=== PATIENT | male | born 1965 | race Caucasian/White ===

== ENCOUNTER → 2019-12-17 08:17 | Outpatient (BNVA) | payer MEDICARE, SELFPAY | PROVIDERS: Family Provider Nurse Practitioner; PCP Nurse Practitioner; Referring Provider Nurse Practitioner; Visit Provider Nurse Practitioner | DX: E11.9 Type 2 diabetes mellitus without complications (principal) | CPT/HCPCS: 83036 ==

== ENCOUNTER → 2019-12-18 09:12 | Outpatient (BNVA) | payer MEDICARE, SELFPAY | PROVIDERS: Family Provider Nurse Practitioner; PCP Nurse Practitioner; Visit Provider Nurse Practitioner | DX: Z00.00 Encounter for general adult medical examination without abnormal findings (principal); E03.9 Hypothyroidism, unspecified; E11.9 Type 2 diabetes mellitus without complications | CPT/HCPCS: 80053; 80061; 82044; 83721; 84443; 85025 ==

== ENCOUNTER 2020-07-27 08:25 | Outpatient (CLI) | payer MEDICARE, SELFPAY ==
[2020-07-27 09:00] LABS: Basophils % 0.5 %; Eosinophils # 0.2 10^3/uL (0.0-0.8); Eosinophils % 2.3 %; Hematocrit 44.5 % (42.0-52.0); Hemoglobin 14.7 g/dL (11.7-16.6); Lymphocytes # 2.2 10^3/uL (0.8-4.8); Lymphocytes % 26.3 %; Mean Corpuscular Hemoglobin 29.5 pg (28.0-34.0); Mean Corpuscular Volume 89.4 fL (80-94); Mean Platelet Volume 10.6 fL (7.4-10.4); Monocytes # 0.6 10^3/uL (0.2-0.9); Monocytes % 7.7 %; Neutrophils # 5.21 10^3/uL (1.8-7.7); Neutrophils % 62.7 %; Nucleated Red Blood Cells % 0 %; Platelet Count 253 10^3/cmm (130-400); Red Blood Count 4.98 10^6/uL (4.1-5.3); Red Cell Distribution Width 13.1 % (12.1-15.1); White Blood Count 8.3 10^3/uL (4.0-10.0)
[2020-07-27 09:38] LABS: Alanine Aminotransferase 28 U/L (0-41); Albumin Level 4.5 g/dL (3.5-5.2); Alkaline Phosphatase 83 IU/L (40-130); Anion Gap 14.1 (5-19); Aspartate Amino Transferase 21 U/L (0-40); Blood Urea Nitrogen 10 mg/dL (6-20); Calcium 9.9 mg/dL (8.5-10.5); Carbon Dioxide 25 mmol/L (22-29); Chloride 101 mmol/L (98-107); Chol HDL Ratio 4.23 mg/dL (1.0-5.00); Cholesterol 131 mg/dL (0-200); Globulin 2.6 g/dL (1.3-4.6); Glomerular Filtration Rate 101.1 mL/min (90-130); Glucose 203 mg/dL (65-115); HDL Cholesterol 31 mg/dL (60-100); LDL Cholesterol Calculated 74 mg/dL (50-129); LDL HDL Ratio 2.39 RATIO (0.00-3.22); Magnesium 1.9 mg/dL (1.7-2.3); Osmolality Calculated 287 mOsm/kg (285-295); Phosphorus 3.4 mg/dL (2.5-4.5); Potassium 4.1 mmol/L (3.5-5.1); Sodium 136 mmol/L (136-145); Thyroid Stimulating Hormone 3.91 uIU/mL (0.27-4.20); Total Bilirubin 0.5 mg/dL (0.15-1.2); Total Protein 7.1 g/dL (6.6-8.7); Triglycerides 130 mg/dL (0-150)
[2020-07-27 09:45] LABS: Add Urine Culture? No; Bacteria Urine TRACE /hpf; Bilirubin Urine Neg (Negative); Blood Urine Neg (Negative); Glucose Urine UA 1+ (Normal); Ketones Urine Negative (Negative); Leukocyte Esterase Urine Negative (Negative); Nitrate Urine Negative (Negative); Protein Urine Neg (Negative); Specific Gravity, Urine 1.005 (1.005-1.030); Squamous Epithelial Cell Urine RARE /hpf (0-5); Urine Appearance Clear (CLEAR); Urine Color Yellow (Yellow); Urobilinogen Urine Norm (Negative); WBC Urine RARE /hpf (0-5); pH Urine 7 (5-7)
[2020-07-27 09:51] LABS: Estmated Average Glucose 246; Hemoglobin A1C 10.2 % (4.0-6.0)
[2020-07-27 14:59] LABS: 25 Hydroxy Vitamin D 31 ng/mL (30-100)
== END 2020-07-27 08:26 | disposition home or self-care (01) ==
LOC: LAB 08:29
PROVIDERS: PCP Nurse Practitioner Family; Visit Provider Nurse Practitioner Family
DX: E11.9 Type 2 diabetes mellitus without complications (principal); E55.9 Vitamin D deficiency, unspecified; E03.9 Hypothyroidism, unspecified; E78.5 Hyperlipidemia, unspecified
CPT/HCPCS: 80053; 80061; 81001; 82306; 83036; 83735; 84100; 84443; 85025

== ENCOUNTER 2020-08-11 07:24 | Outpatient (CLI) | payer MEDICARE, SELFPAY ==
[2020-08-11 08:13] LABS: Alanine Aminotransferase 30 U/L (0-41); Albumin Level 4.1 g/dL (3.5-5.2); Alkaline Phosphatase 88 IU/L (40-130); Aspartate Amino Transferase 18 U/L (0-40); Chol HDL Ratio 5.33 mg/dL (1.0-5.00); Cholesterol 144 mg/dL (0-200); Globulin 2.9 g/dL (1.3-4.6); HDL Cholesterol 27 mg/dL (60-100); LDL Cholesterol Calculated 77 mg/dL (50-129); LDL HDL Ratio 2.85 RATIO (0.00-3.22); Thyroid Stimulating Hormone 3.35 uIU/mL (0.27-4.20); Total Bilirubin 0.2 mg/dL (0.15-1.2); Triglycerides 200 mg/dL (0-150)
== END 2020-08-11 07:25 | disposition home or self-care (01) ==
PROVIDERS: PCP Nurse Practitioner Family; Visit Provider Internal Medicine Cardiovascular Disease
DX: E78.5 Hyperlipidemia, unspecified (principal); I73.9 Peripheral vascular disease, unspecified; N18.9 Chronic kidney disease, unspecified
CPT/HCPCS: 80061; 80076; 84443

== ENCOUNTER → 2020-08-12 09:49 | Outpatient (BNVA) | payer MEDICARE, SELFPAY | PROVIDERS: PCP Nurse Practitioner Family; Visit Provider Nurse Practitioner Family | DX: Z11.59 Encounter for screening for other viral diseases (principal) | CPT/HCPCS: 87635 ==

== ENCOUNTER 2020-08-30 13:35 | Outpatient (CLI) | payer MEDICARE, SELFPAY ==
--- NOTE | 2020-08-30 14:15 | USCV_ITS ---
John Solitario Age: 54 Gender: M : 1965 Exam Date: 08/30/2020 14:20 Ordering Phys: Mark Perez MD ([email or web address]) Technologist: Tona Sapp [place] [facility] [place]: LEG PAIN, FATIGUE Risk Factors: Previous Vascular Surgery: RIGHT LEFT BP: 108.0 / 66.00 BP: 123.0/ 68.00 0 0 Waveform Velocity (cm/s) Velocity (cm/s) Waveform Monophasic 94.7 Iliac Prox 103.1 Triphasic Monophasic 88.2 Iliac Mid 100.3 Triphasic Monophasic 93.1 Iliac Distal 106.9 Triphasic Monophasic 81.6 PHOTOGRAPHIC PROCESS SCREEN MAKER 81.4 Triphasic Monophasic 74.3 SFA Prox 41.6 Monophasic Monophasic 43.0 SFA Mid 43.7 Monophasic Monophasic 62.5 SFA Dist 336.8 Monophasic Monophasic 56.2 POP 65.7 Monophasic Monophasic 27.8 HRIS MANAGER 44.7 Monophasic Monophasic 51.4 DPA 50.2 Monophasic 0.7 TRACY 0.6 FINDINGS Mild to moderate diffuse plaques in the iliac and femoral artery on the right side. Moderate to heavy plaque in the distal superficial femoral artery on the left side with significant velocity elevation. Monophasic and continuous waveforms in the posterior tibial and dorsalis pedis artery on the left side TRACY 0.7 on the right side and 0.6 on the left side CONCLUSIONS 1. Features of high-grade stenosis in the distal superficial femoral artery on the left side with some evidence of collateral filling of the posterior tibial and dorsalis pedis artery 2. Abnormal resting TRACY on the right side, suggestive of moderate peripheral artery disease No similar previous studies are available for comparison Dr Mark Perez MD [facility] (Electronically Signed) Final Date: 31 August 2020 19:01 S
== END 2020-08-30 13:36 | disposition home or self-care (01) ==
LOC: US 13:38
PROVIDERS: PCP Nurse Practitioner Family; Visit Provider Internal Medicine Cardiovascular Disease
DX: M79.604 Pain in right leg (principal); M79.605 Pain in left leg; R53.83 Other fatigue
CPT/HCPCS: 93925

== ENCOUNTER 2020-11-10 12:27 | Outpatient (CLI) | payer MEDICARE, SELFPAY ==
--- NOTE | 2020-11-10 13:30 | CT_ITS ---
WS: [id number] CTA ABDOMINAL AORTA WITH RUNOFF TECHNIQUE: Contrast enhanced CTA of the abdominal aorta with bilateral lower extremity runoff. Multip lanar reformatted images were obtained. MIP reformats were also reviewed. CLINICAL INFORMATION: I73.9 - Peripheral vascular disease, unspecified COMPARISON: None. DLP: 1586.[address] scans at [facility] use at least one of these dose optimization techniques: automat ed exposure control; mA and/or kV adjustment per patient size (includes targeted exams where dose is matched to clinical indication); or iterative reconstruction. FINDINGS: Normal caliber abdominal aorta. Mild aortic calcification. Moderate atheromatous disease. M ild stenosis in the distal abdominal aorta. Bilateral proximal common iliac stents. Common origin of the celiac and SMA. Bilateral renal arteries are patent. Subsegmental atelectasis/fibrosis left lower lobe with pleural plaques. Normal liver. Normal gallblad nestor. Right adrenal gland is normal. Left adrenal myelolipoma measuring 2.1 cm unchanged since 2019. S mall esophageal hiatal hernia. Normal spleen. Normal renal parenchymal enhancement. No hydronephrosis . Normal sigmoid colon. No evidence of high-grade small or large bowel obstruction. Normal appendix rig ht lower quadrant. No periaortic or retroperitoneal lymphadenopathy. Fat-containing inguinal hernias. Bilateral pars defects L5-S1. No anterolisthesis. RIGHT: Right common iliac stent. Right common iliac stent is patent. No flow-limiting stenosis. Right common iliac and external iliac arteries are patent. Internal iliac artery is patent. Right common f emoral artery and superficial femoral arteries are patent. Calcified atheromatous disease approximate ly 40% stenosis of the popliteal origin at the adductor hiatus. Popliteal artery is patent to the tri furcation. Three-vessel runoff to the ankle. LEFT: Left common iliac artery is patent. Stent appears patent. No flow-limiting stenosis. External a nd internal iliac arteries are patent. Common femoral artery is patent. Superficial femoral and deep femoral arteries are patent. High-grade stenosis involving the distal superficial femoral artery near the adductor hiatus measuring approximately 70%. Popliteal artery is patent. Popliteal artery is pat ent to the trifurcation. Normal 3 vessel runoff to the ankle. CT/CT angio abd aorta runof [id number] IMPRESSION: 1. Bilateral common iliac stents are patent. No flow-limiting stenosis. 2. Approximately 40% stenosis in the RIGHT proximal popliteal artery at the ad ductor hiatus measuring approximately 40%. 3. Distal superficial femoral artery with calcified eccentric atheromatous dariana que in the medial LEFT thigh measuring 70-80%. 4. LEFT Superficial femoral artery and popliteal arteries are otherwise patent . 5. Normal 3 vessel runoff to both ankles in a symmetric fashion bilaterally. 6. Normal caliber abdominal aorta. 7. Nonvascular findings described above.
[2020-11-10] MEDS: iohexol 350 mg/mL 100 mL Btl IV (13:39)
== END 2020-11-10 12:28 | disposition home or self-care (01) ==
LOC: RADWPI 12:32
PROVIDERS: PCP Nurse Practitioner Family; Visit Provider Internal Medicine Cardiovascular Disease
DX: I73.9 Peripheral vascular disease, unspecified (principal); I70.8 Atherosclerosis of other arteries
CPT/HCPCS: 75635; Q9967

== ENCOUNTER → 2020-12-14 08:45 | Outpatient (BNVA) | payer MEDICARE, SELFPAY | PROVIDERS: PCP Nurse Practitioner Family; Visit Provider Nurse Practitioner Family | DX: I10 Essential (primary) hypertension (principal); E11.9 Type 2 diabetes mellitus without complications; E78.5 Hyperlipidemia, unspecified; E03.9 Hypothyroidism, unspecified | CPT/HCPCS: 80053; 80061; 83036; 84443; 85025 ==

== ENCOUNTER → 2021-01-16 11:10 | Outpatient (BNVA) | payer MEDICARE, SELFPAY | PROVIDERS: PCP Nurse Practitioner Family; Visit Provider Nurse Practitioner Family | DX: E11.9 Type 2 diabetes mellitus without complications (principal) | CPT/HCPCS: 80053 ==

== ENCOUNTER 2021-02-01 10:50 | Outpatient (CLI) | payer MEDICARE, SELFPAY ==
[2021-02-01 11:23] VITALS: BMI 36.9
--- NOTE | 2021-02-01 11:27 | NMCV_ITS ---
NM zak perf SPECT r/s* [id number] John Solitario Age: 55 Gender: M : 1965 Exam Date: 02/01/2021 11:27 Ordering Phys: Mark Perez MD ([email or web address]) Technologist: KAREN Ahuja Exam Location: [facility] Indications: Chest pain STRESS TEST Please see separate stress test report in [facility] for full findings IMAGE PROTOCOL Rest/Stress 1 Lexiscan Day Radiopharmaceutical Dose (mCi) Administration Site Administered by Rest: Tc-99m 10.6 IV KAREN Ahuja Sestamibi Stress:Tc-99m 32.8 IV KAREN Ahuja Sestamibi Rest: 01-Feb-2021 60 Discovery 630 Stress: 01-Feb-2021 30 Discovery 630 0.4mg Lexiscan. Images obtained in supine and prone position. SPECT RESULTS Technical Quality: Good Raw Data Analysis: Normal Image Corrections: No attenuation or motion correction applied Summed Stress Score: 10 Summed Rest Score: 24 Summed Difference Score: 0 PERFUSION FINDINGS Moderate area of severely decreased tracer uptake was noted in the basal mid and apical inferior regions, with no significant reversibility. Areas of slightly decreased tracer uptake also was noted in the apical segments. No significant reversibility was noted in these regions. FUNCTIONAL RESULTS (calculated via Gated SPECT) Stress Image LV EF (%): 20 Stress EDV (mL):232 TID: 0.99 Stress ESV (mL):186 FUNCTIONAL FINDINGS: Segmental wall motion analysis revealed severe diffuse hypokinesia left ventricle. IMPRESSIONS 1. Myocardial perfusion imaging revealing a moderate area of persistent decreased tracer uptake in the inferior wall region, suggestive of myocardial scarring in the distribution of the right coronary artery. Areas of persistent decreased tracer uptake in the apical regions, suggestive of myocardial scarring versus attenuation artifact. 2. Severely decreased LV ejection fraction of 20%. 3. LV wall motion analysis revealing severe diffuse hypokinesia of the left ventricle. 4. Markedly dilated LV cavity with an end-systolic volume of 186 mL. No significant coronary ischemia, based on the above findings. No similar previous studies are available for comparison Dr Mark Perez MD FAC (Electronically Signed) Final Date: 01 February 2021 17:38 S
--- NOTE | 2021-02-01 11:27 | ECG_ITS ---
[facility] Test Date: 2021-02-01 Pat Name: John Solitario Department: Room: Gender: Male Credit Risk Modeler: : 1965 Requested By: Mark Perez Order Number: [id number] Jarred MD: Mark Perez M.D. Interpretive Statements NAME OF STUDY: LEXISCAN SESTAMIBI STRESS TEST INDICATION: Chest Pain PROCEDURE: At the baseline, the EKG revealed sinus rhythm with a left bundle branch block. The baseline blood pressure was 113/77 mm Hg with a heart rate of 79 beats/min. Lexiscan was infused over a period of 20 seconds. A total of 0.4 milligrams of Lexiscan was infused. The stress phase was continued for a total of 5 minutes. Heart rate at the end of the stress phase was 83 with a blood pressure 18/73. The EKG at the peak infusion revealed no significant changes. Sestamibi was injected 20 seconds after the Lexiscan infusion. Blood pressure at the end of the recovery phase was 131/78 with a heart rate of 81 per minute. CONCLUSION: 1. No significant EKG changes with the LexiScan infusion 2. No LexiScan induced chest pain or cardiac arrhythmia 3. Normal blood pressure and heart rate response 4. Sestamibi/sestamibi perfusion scan pending; see separate report. Electronically Signed On 02-09-2021 22:18:08 CDT by Mark Perez M.D. [email or web address]
--- NOTE | 2021-02-01 13:47 | SUR.PREOP ---
Patient reports no pain or discomfort prior to the start of the procedure.
[2021-02-01] MEDS: regadenoson 0.4 Mg/5 ml Syringe IVP (13:49)
[2021-02-01 14:24] VITALS: BP 117/74; PULSE 83
== END 2021-02-01 10:51 | disposition home or self-care (01) ==
LOC: CDL 10:54
PROVIDERS: PCP Nurse Practitioner Family; Visit Provider Internal Medicine Cardiovascular Disease
DX: R07.9 Chest pain, unspecified (principal); R06.02 Shortness of breath
CPT/HCPCS: 78452; 93017; A9500; J2785

== ENCOUNTER 2021-02-02 08:00 | Outpatient (CLI) | payer MEDICARE, SELFPAY ==
[2021-02-02 08:13] LABS: Basophils # 0.1 10^3/uL (0.0-0.1); Basophils % 0.8 %; Eosinophils # 0.6 10^3/uL (0.0-0.8); Eosinophils % 6.9 %; Hematocrit 45.4 % (42.0-52.0); Hemoglobin 15.2 g/dL (11.7-16.6); Lymphocytes # 2.1 10^3/uL (0.8-4.8); Lymphocytes % 24.4 %; Mean Corpuscular HGB Conc 33.5 g/dL (30.0-36.0); Mean Corpuscular Hemoglobin 29.8 pg (28.0-34.0); Mean Platelet Volume 10.2 fL (7.4-10.4); Monocytes # 0.6 10^3/uL (0.2-0.9); Monocytes % 6.8 %; Neutrophils # 5.29 10^3/uL (1.8-7.7); Neutrophils % 60.6 %; Nucleated Red Blood Cells % 0 %; Platelet Count 280 10^3/cmm (130-400); Red Cell Distribution Width 13.2 % (12.1-15.1); White Blood Count 8.7 10^3/uL (4.0-10.0)
[2021-02-02 08:29] LABS: INR 1.14 (0.8-1.2)
[2021-02-02 08:39] LABS: Anion Gap 16.4 (5-19); Blood Urea Nitrogen 13 mg/dL (6-20); Calcium 9.6 mg/dL (8.5-10.5); Carbon Dioxide 25 mmol/L (22-29); Chloride 100 mmol/L (98-107); Glomerular Filtration Rate 87.9 mL/min (90-130); Glucose 240 mg/dL (65-115); Osmolality Calculated 292 mOsm/kg (285-295); Potassium 4.4 mmol/L (3.5-5.1); Sodium 137 mmol/L (136-145)
== END 2021-02-02 08:01 | disposition home or self-care (01) ==
LOC: LAB 02-17 07:39
PROVIDERS: Internal Medicine Cardiovascular Disease; PCP Nurse Practitioner Family; Visit Provider Internal Medicine Pulmonary Disease
DX: E55.9 Vitamin D deficiency, unspecified (principal); Z01.812 Encounter for preprocedural laboratory examination; E78.5 Hyperlipidemia, unspecified; I25.110 Atherosclerotic heart disease of native coronary artery with unstable angina pectoris; I48.0 Paroxysmal atrial fibrillation; Z20.822 Contact with and (suspected) exposure to COVID-19
CPT/HCPCS: 36415; 80048; 85025; 85610; 87635

== ENCOUNTER 2021-02-14 14:52 | Outpatient (CLI) | payer MEDICARE, SELFPAY ==
--- NOTE | 2021-02-14 15:02 | USCV_ITS ---
John Solitario Age: 55 Gender: M : 1965 Exam Date: 02/14/2021 15:23 Ordering Phys: Mark Perez MD ([email or web address]) Technologist: Rosi Lozano Exam Location: [facility] [place] Indication: CARDIAC HISTORY WITH ANGINA BP: 122 / 79 HR: 87 Rhythm: Sinus Technical Quality: Adequate MEASUREMENTS (Male / Female) Normal Values 2D ECHO LV Diastolic Diameter PLAX 5.9 cm 4.2 - 5.9 / 3.9 - 5.3 cm LV Systolic Diameter PLAX 4.3 cm LV Chamber Size 5.3 cm IVS Diastolic Thickness 1.7 cm 0.6 - 1.0 / 0.6 - 0.9 cm IVS Systolic Thickness 2.2 cm LVPW Diastolic Thickness 1.7 cm 0.6 - 1.0 / 0.6 - 0.9 cm LVPW Systolic Thickness 2.0 cm RV Chamber Size 2.9 cm LVOT Diameter 2.1 cm LV Ejection Fraction 2D Teich 52.3 % LV Ejection Fraction MOD 2C 53.2 % LV Ejection Fraction 2C AL 55.8 % LA Diameter 4.1 cm LA Width 4.2 cm LA Height 6.1 cm RA Width 3.5 cm RA Height 4.3 cm Aorta at Sinotubular Diameter 2.9 cm M-MODE LV Diastolic Diameter MM 5.0 cm 4.2 - 5.9 / 3.9 - 5.3 cm LV Systolic Diameter MM 3.4 cm LV Ejection Fraction MM Teich 59.2 % IVS Diastolic Thickness MM 1.0 cm 0.6 - 1.0 / 0.6 - 0.9 cm IVS Systolic Thickness MM 1.6 cm LVPW Diastolic Thickness MM 1.6 cm 0.6 - 1.0 / 0.6 - 0.9 cm LVPW Systolic Thickness MM 1.6 cm Aortic Annulus Diameter 1.9 cm LA Ao Ratio MM 1.5 MV E Point Septal Separation 1.4 cm DOPPLER AV Peak Velocity 174.0 cm/s LVOT Peak Velocity 97.3 cm/s AV Area Cont Eq vti 1.8 cm squared AV Area Cont Eq pk 1.9 cm squared MV Area PHT 12.2 cm squared Mitral E to A Ratio 1.1 MV E' Velocity 62.5 cm/s Mitral E to MV E' Ratio 7.8 Mitral E to LV E' Lateral Ratio 7.0 Mitral E to LV E' Septal Ratio 8.9 TV Peak E Velocity 75.0 cm/s PV Peak Velocity 85.0 cm/s RV Acceleration Time 0.1 s RV Ejection Time 0.3 s RV AcT/ET 0.4 FINDINGS Left Ventricle Mildly dilated Left ventricle. LV systolic function is moderately reduced with EF of 35-40%. Mild to moderate global hypokinesis with moderate hypokinesis of intferoseptal , inferolateral and anteroseptal mata. Right Ventricle The right ventricle is normal in size and function. Right Atrium The right atrium is normal in size. Left Atrium The left atrium is normal in size. Mitral Valve Structurally normal mitral valve without significant stenosis or prolapse. There is mild to moderate mitral regurgitation. Aortic Valve Aortic valve is thickened without significant sclerosis. There is no aortic regurgitation. Tricuspid Valve Structurally normal tricuspid valve without significant stenosis or regurgitation. Insufficient TR jet to calculate RVSP Pulmonic Valve Structurally normal pulmonic valve without significant stenosis. There is no pulmonic regurgitation. Pericardium Normal pericardium without effusion. Aorta Normal ascending aorta dimension. CONCLUSIONS LV systolic function is moderately reduced with EF of 35-40% LV is mildly dilated Above mentioned regional wall motion abnormalities seen Mild to moderate mitral regurgitation is seen Compared to prior echocardiogram from 03/16/2015, LV systolic function has decreased and patient has developed mild to moderate mitral regurgitation Gerald Rivers MD (Electronically Signed) Final Date: 23 Feb 2021 10:42 S
== END 2021-02-14 14:53 | disposition home or self-care (01) ==
LOC: RAD 14:54
PROVIDERS: PCP Nurse Practitioner Family; Visit Provider Internal Medicine Cardiovascular Disease
DX: I25.119 Atherosclerotic heart disease of native coronary artery with unspecified angina pectoris (principal); I48.0 Paroxysmal atrial fibrillation; I34.0 Nonrheumatic mitral (valve) insufficiency
CPT/HCPCS: 93306

== ENCOUNTER → 2021-03-23 09:13 | Outpatient (BNVA) | payer MEDICARE, SELFPAY | PROVIDERS: PCP Nurse Practitioner Family; Referring Provider Internal Medicine Cardiovascular Disease; Visit Provider Internal Medicine Cardiovascular Disease | DX: I25.110 Atherosclerotic heart disease of native coronary artery with unstable angina pectoris (principal); R06.02 Shortness of breath; Z20.822 Contact with and (suspected) exposure to COVID-19; Z79.01 Long term (current) use of anticoagulants | CPT/HCPCS: 80048; 85025; 85610; 86850; 86900; 87635 ==

== ENCOUNTER 2021-03-29 05:48 | Day surgery (SDC) | payer MEDICARE, SELFPAY ==
--- NOTE | 2021-03-29 06:00 | XACV_ITS ---
Exam Room: [facility] Ht: 175 cm Wt: 113 kg BSA: 2.39 m2 Gender: Male : 1965 Exam Priority: Routine Procedure(s): Procedure Description: Diagnostic procedure Procedure Description: Left Heart Catheterization Procedure Description: Left ventriculography Procedure Description: Peripheral Cath Diagnostic Procedure Procedure Description: Abdominal aortic angiography Diagnostic Cath Status: Elective Diagnostic Findings * Coronary angiography shows right dominance. * The left main is a medium caliber vessel which was found to have a high-grade around 70-80% stenosis distally. * The left anterior descending artery is a medium caliber vessel which was found to have a long stented segment proximally. There is a 90% lesion near the ostium of the LAD. Competitive flow was noted in the distal LAD. Moderate diffuse disease was noted in the mid LAD. * The left circumflex artery is a medium caliber vessel which gives off a high obtuse marginal branch (intermedius artery) which was found to have around 50% tubular narrowing in the mid segment. The proximal circumflex artery gives off a relatively large atrial branch. Right after this, the artery gives off a large obtuse marginal branch which has a long stented segment proximally. This artery appears to be totally occluded in the stent. The AV groove branch of the circumflex artery is elongated vessel with mild diffuse disease.. * The right coronary artery is a medium caliber vessel which appears to be totally occluded after giving of the first RV branch. There was grade 2 [id number] collaterals filling up the distal PDA and the PLV branches from the left coronary arteries.. * There is a Y graft-saphenous vein graft to the obtuse marginal artery and to the mid LAD. Saphenous graft was found to be widely patent. Distal to the anastomosis, the left and descending artery was found to have around 60% tubular narrowing. In the obtuse marginal artery, there was a diffuse around 50% narrowing in the artery distal to the anastomosis. There is no significant retrograde flow in these [place] vessels, from the anastomosis.. Lower Extremity Diagnostic Findings An abdominal aortogram with runoff was performed by placing the pigtail catheter just above the bifurcation. The angiogram was performed in the AP view. The findings are as follows. Both common iliac arteries were found to have stented segment proximally which are widely patent. Near the ostium of the right common iliac artery, there is a 40% narrowing. The superficial femoral artery on the left side was found to have around 60% stenosis in the adductor canal. The distal superficial femoral artery was found to have mild diffuse disease. Trifurcation vessels were noted proximally. No significant lesions were noted in the external iliac, common femoral and popliteal vessels. On the right side, the external iliac, common femoral and the proximal segment of the superficial femoral artery were found to have no significant stenotic lesions.. Conclusions This 55-year-old white male with a history of coronary disease, status post coronary artery bypass surgery and previous multiple PCI's, no presenting with increasing episodes of chest pain, requiring frequent intake of sublingual nitroglycerin. The patient underwent left heart catheterization with left and right coronary angiogram, LV angiogram, graft angiogram and aortogram with runoff today. The findings are as follows. Cardiac catheterization revealed severe three-vessel coronary artery disease with a total occlusion of the mid circumflex and proximal RCA. High-grade lesion near the ostium of the left anterior descending artery. Patent Y graft to the LAD and to the obtuse marginal artery. High-grade lesion in the distal left main. LV ejection fraction of 25%. LVEDP of 7 mmHg.. Peripheral angiogram revealed moderate disease in the left SFA. Patent stented segments of the proximal iliac arteries bilaterally. 40% stenosis near the ostium of the right common iliac artery. The infrapopliteal vessels were not well visualized in the study. Recommendations I reviewed and discussed the cardiac catheterization data with Alexx Rivers. Based on the patient's clinical presentation and the above angiographic findings, it was thought to be appropriate to consider PCI of the left main lesion. It was decided to send the patient back to medical for and to schedule this procedure in the morning. Patient was transferred to the medical floor for stable condition. Ventriculography Ejection Fraction: 25.0 % LV EDP: 7 mmHg Left Ventriculography Findings: * The LV gram was performed in the VERMA projection. The LV cavity appears to be dilated. The patient was found to be tachycardic during the study. There was diffuse hypokinesia of the left ventricle. The inferobasal segment was found to be almost akinetic. No significant filling defect. The LV gram was of suboptimal quality. The LV ejection fraction was around 25%. LVEDP was 7 mmHg.. Pressures Phase:Rest AO : 63 / 51 ( 56 ) @ 6:43:00 AM 87 / 12 ( 44 ) @ 6:48:00 AM LV : 91 / 0 / 0 @ 6:46:00 AM 81 / 2 / 8 @ 6:46:00 AM 81 / 2 / 8 @ 6:46:00 AM 93 / 6 / 12 @ 6:47:00 AM 96 / 5 / 9 @ 6:47:00 AM Hemodynamic Data Phase:Rest AO : 63.0 / 51.0 ( 56.0 ) @ 6:43:00 AM 87.0 / 12.0 ( 44.0 ) @ 6:48:00 AM Clinical Evaluation EBL: 5mL-10mL Procedural Details Procedure Consent Obtained. Admit Source: Out Patient. Pre-Procedure Time Out. Identified patient by full name and date of as verbalized by the patient/guarantor. Does the consent match the physician's order: Yes. Accurate & Complete Informed Consent: Yes. Inpatient/Outpatient History & Physical on Chart: Yes. If H&P is completed, is and addenduem needed: Yes; If yes, is the addendum complete: N/A. Visualize and Verify Site with Patient/Guarantor: N/A. Relevant Radiology Images available: N/A. Pre-op teaching completed and patient verbalized understanding. The risks, benefits, and alternatives of sedation and/or procedure were discussed by physician. The patient agrees to continue. Procedure started. [facility] Clinical Fraility Score: 4: Vulnerable. Cardiovascular Instability: No,. Chest Pain Symptom Assessment: Typical Angina Symptoms. Prick Stitcher Indications: worsening Chest pain. Correct patient, site and procedure confirmed by cath team. PERRLA. 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 Lungs clear x 5 lobes. IV Site on Arrival: 20 gauge in the left anticubital. Pre Procedural Pulses: bilateral dorsalis pedis was Doppled. Pre Procedural Pulses: right posterior tibial was Doppled. Pre Procedural Pulses: left posterior tibial was 1+. Pre Procedural Pulses: bilateral radial was 3+. Oxygen started at 2liters/min via nasal canula. bilateral groins was prepped with chloroprep then draped in the usual sterile fashion. Physician notified. Baseline sample Acquired. HR: 103 BPM. Physician arrived. Physician scrubbed in. Immediate Pre-Procedure Time Out. Correct Patient: Yes; Correct Procedure: Yes; Correct Site: Yes; Correct Patient Position: Yes; Correct Supplies: Yes; Dried Flammable Prep: Yes; Blood Products Available: NA;. Lidocaine 1% infiltrated to the right groin. Arterial access obtained with micropuncture set. A 5 danish JL4 catheter in over wire. Multiple views taken of left coronary artery. Catheter out. A 5 danish JR4 catheter in over wire. Multiple views taken of right coronary artery. SVG's to LAD visualized and patent. SVG's to Circumflex visualized and patent. Side port of sheath attached to Normal Saline flush at KVO to maintain patency. Catheter out. A 5 danish Angled Pig catheter in over wire. EDP Sample taken: LV 91/0,0; HR: 126 BPM; SpO2: 94%. EDP Sample taken: LV 81/2,8; HR: 103 BPM; SpO2: 94%. LV gram performed in VERMA @ 10 mL/second for a total of 30 mL. EDP Sample taken: LV 93/6,12; HR: 114 BPM; SpO2: 98%. Pullback taken: LV Off; AO Off; Mean: , Peak to Peak: , SEP: ; HR: 106 BPM; SpO2: 97%. Catheter pulled back to the abdominal aorta. Abdominal aortogram performed in AP @ 10 mL/sec for a total of 30 mL. groin shot perfomed. Catheter out. wire out. Sheath(s) sutured into position with 2-0 silk and sterile 4x4's and Op-site applied over the site. No oozing or signs and symptoms of hematoma noted. Arterial sheath flushed and connected to tranducer and pressure bag with heparinized saline. Post Procedure: Pulses reassessed and unchanged. PERRLA. 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 No VTE prophylaxis required. A Suture was successful obtaining hemostatsis at the Right Femoral artery insertion site. Medication's Wasted: Lidocaine 1% = 8 mL. Medication's Wasted: Other = 1 versed mg. Medication's Wasted: Other = fentanyl 50 mg. Medication's Wasted: Other = lasix mg. Total IV fluids: 260 mL. Contrast type used: Omnipaque 300 mgI/mL, 500 mL bottle. Omnipaque 146mL. Post-op diagnosis: severe three vessel deisease, Left main cardiomopathy. Complications: none. Estimated blood loss: 5mL-10mL. Procedure completed. Patient transferred by bed to 1st floor. Vital chart was stopped. Access Site Site: Right Femoral artery Sheath Size: 5 Fr Hemostasis Method: Suture Hemostasis Success: Successful Procedure Medications Start: 7:16 AM Stop: 7:16 AM Medication: Versed Amount: 1 mg Route: I.V. Start: 7:16 AM Stop: 7:16 AM Medication: Fentanyl Amount: 50 mcg Route: I.V. Start: 7:28 AM Stop: 7:28 AM Medication: Heparin Amount: 1500 units Route: I.V. Start: 7:29 AM Stop: 7:29 AM Medication: Versed Amount: 1 mg Route: I.V. Start: 7:31 AM Stop: 7:31 AM Medication: 0.9% Saline Amount: 250 ml Route: I.V. bolus Start: 7:45 AM Stop: 7:45 AM Medication: Digoxin (Lanoxin) Amount: 250 mcg Route: I.V. Start: 7:53 AM Stop: 7:53 AM Medication: Digoxin (Lanoxin) Amount: 250 mcg Route: I.V. I, the attending physician, have reviewed and verified all procedure medications. Yes, all medications given per verbal order History/Risk Factors Hypertension: Yes Dyslipidemia: Yes Tobacco Use: Current/Recent(w/in 1 year) Report Signatures Finalized by Dr Mark Perez MD [facility] on 03/29/2021 10:58 PM
[2021-03-29] MEDS: diphenhydrAMINE 50 mg Capsule PO (06:20)
[2021-03-29 06:35] VITALS: BP 101/77; PULSE 126; RESP 16; TEMP 36.6; O2SAT 95; BMI 36.7
--- NOTE | 2021-03-29 07:10 | W.PM.OPSUD ---
Surgery/Procedure H&P Update DATE OF PROCEDURE: March 29, 2021 DATE H&P PERFORMED: 02/27/21 H&P UPDATE INFORMATION: I have reviewed H&P completed within last 30 days, I have examined patient prior to procedure and No changes to prior documentation PREOP DIAGNOSIS: ASHD/increasing chest pain/leg pain PRIMARY INDICATION FOR PROCEDURE: ASHD/leg pain?PAD PLANNED PROCEDURE: Operation Date: 03/29/21 07:00 Proposed Procedures p left Cardiac Catheterization 30217 I25.10 [id number] I73.9(Left) - Mark Perez MD s Peripheral Diagnostic(Bilateral) - Mark Perez MD PATIENT REASSESSED PRIOR TO SEDATION, WITH NO CHANGE NOTED: Yes PHYSICAL EXAM: alert, oriented x 3, clear to auscultation bilaterally and regular rate & rhythm AIRWAY EVAL/ANESTHESIA PLAN: normal airway, see other exam findings, ASA III, Monitored Anesthesia, Local Anesthesia, Risks, benefits & alternatives of sedation and/or procedure discussed and Patient agrees to continue as planned
--- NOTE | 2021-03-29 08:11 | P.OP_ITS ---
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 transplanted heart: [place] heart Qualified Code(s): I25.119 - Atherosclerotic heart disease of [place] coronary artery with unspecified angina pectoris (5) Peripheral arterial disease:
--- NOTE | 2021-03-29 08:11 | PM.OP ---
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 transplanted heart: [place] heart Qualified Code(s): I25.119 - Atherosclerotic heart disease of [place] coronary artery with unspecified angina pectoris (5) Peripheral arterial disease:
[2021-03-29 08:15] VITALS: PULSE 126
[2021-03-29 08:21] VITALS: BP 112/72; PULSE 107
[2021-03-29 08:30] VITALS: BP 112/72; PULSE 126
[2021-03-29] MEDS: atorvastatin 40 mg Tablet 20 MG PO (09:19)
[2021-03-29] MEDS: magnesium oxide 400 mg tablet 800 MG PO (09:19)
[2021-03-29 09:20] VITALS: PULSE 108
[2021-03-29] MEDS: digoxin 125 mcg Tablet PO (09:20)
[2021-03-29] MEDS: ranolazine (12HR) 500 mg Tablet PO (09:21)
[2021-03-29] MEDS: isosorbide dinitrate 20 mg Tablet PO (09:21)
[2021-03-29] MEDS: FUROsemide 20 mg Tablet PO (09:21)
[2021-03-29] MEDS: omega-3 fatty acids 1,000 mg Capsule 1000 MG PO (09:21)
[2021-03-29] MEDS: levothyroxine 112 mcg Tablet PO (09:22)
[2021-03-29] MEDS: clopidogrel 75 mg Tablet PO (09:22)
[2021-03-29] MEDS: metoprolol tartrate 50 mg Tablet 100 MG PO (09:36)
[2021-03-29] MEDS: sodium chloride 0.45% 1,000 ML 100 ML IV (09:56)
--- NOTE | 2021-03-29 13:25 | PC.NURSE ---
Dr lomas notified of patient elevation in heart rate, no new orders Chris will come to bedside and speak with patient
[2021-03-29 14:00] VITALS: PULSE 132
--- NOTE | 2021-03-29 15:30 | PC.RESP ---
SMOKING CESSATION INFORMATION SENT TO PATIENT.
--- NOTE | 2021-03-29 16:21 | PC.NURSE ---
Patient left against medical advice at this time patient was willing to stay until 4 pm multiple attempts to reach Dr Perez with patients statements I will not stay here past 4 pm i will walk out of here I have thrown monitors I hate hospitals I will not stay after multiple disciplines spoke with patient about risks of bleeding patient reported he could manage himself. with no success to contact Dr Perez patient walked out at 1555 without signing AMA form Dr Perez called unit a few moments later he was notified of situation contacted Pricila with Dr. Márquez request to make sure patient did not take Eliquis and was back at hospital at 0600 for planned cath in the am
--- NOTE | 2021-03-29 22:14 | PM.HP ---
Providers/Chief Complaint Admitting Physician: Mark Perez MD Primary Care Provider: RG Leon Chief Complaint: lhc and periphereal History of Present Illness John Solitario is a 55 year old male with a history of atherosclerotic heart disease, status post also coronary bypass surgery, he is presenting with increasing episodes of chest pains. He has been having episodes of chest tightness associated shortness of breath. According to his , he may have taken a total of 100 sublingual nitroglycerin tablet within the last 2 weeks. His exercise tolerance is markedly going down. He had a myocardial perfusion imaging recently and was found to have no significant ischemia. He also is known to have chronic atrial fibrillation, on long-term oral anticoagulation, type 2 diabetes, dyslipidemia, essential benign hypertension, peripheral artery disease, posttraumatic stress disorder and personality disorder. In view office of resting chest symptoms, in order to further evaluate his coronary status as well as the graft status, a cardiac catheterization was recommended. He also is complaining of leg pain/leg weakness with activities. He had a CTA of the peripheral arteries with and was found to have around 70% lesion in the left SFA. A peripheral angiogram also was recommended along with the coronary angiogram. Patient underwent left heart catheterization with left and left coronary angiogram, LV angiogram and an aortogram with runoff today. He was found to have a high-grade lesion in the distal left main of around 80%. High-grade lesion in the proximal LAD. Total occlusion of the first obtuse marginal artery at the stented segment. Mild diffuse disease in the medium caliber intermedius artery. Total occlusion of the proximal right coronary artery with the left right collaterals. LV ejection fraction was around 20%. The LVEDP was 7 mmHg. The peripheral angiogram revealed a moderate diffuse disease in the left SFA. Patent stented segments of the iliac arteries bilaterally. Around 50% stenosis in the ostium of the right common iliac artery. Reviewed and discussed the angiogram findings with the Dr. Rivers. Based on the above angiogram findings, it was thought to be appropriate to consider a protected left main stenting. In view of the patient's our ongoing symptoms, it was thought to be appropriate to consider the PCI as soon as possible. Patient may require anesthesia support and possible hemodynamic support because of the compromised ventricle. So it was thought to be appropriate to do the coronary intervention as a scheduled procedure in the morning. So the patient is admitted to the hospital, for close monitoring and possible complex PCI in the morning. Review of Systems Narrative: CONSTITUTIONAL: No fever or chills. EYES: No blurring of vision or other visual disturbances lately. ENT: No hoarseness of voice, auditory disturbances or sore throat. CARDIOVASCULAR: As mentioned above. RESPIRATORY: Has dyspnea on exertion GASTROINTESTINAL: No hematemesis or melena. GENITOURINARY: No dysuria or hematuria. INTEGUMENTARY: No skin rashes or history of skin cancer. NEURO: Patient has posttraumatic stress disorder/personality disorder PSYCHIATRIC: History of depressive illness HEMATOLOGIC: No bleeding disorders or significant anemia. ENDOCRINE: No history of polyuria or polydipsia. MUSCULOSKELETAL: No recent joint pain or swelling. ALLERGY/IMMUNOLOGY: As mentioned above. Medications/Allergies Home Medications Medication Instructions Recorded Confirmed Last Taken Type atorvastatin 20 mg tablet 20 mg PO DAILY 12/17/19 03/29/21 03/28/21 20:00 History magnesium oxide 800 mg PO DAILY cap 12/17/19 03/29/21 03/28/21 06:00 History wrkiihop-lcx-oehjc acid 300 2 tab PO DAILY tab 12/17/19 03/29/21 03/28/21 06:00 History mcg-lycopene 600 mcg-lutein 300 mcg tablet garlic 1,000 mg capsule 1,000 mg PO DAILY 05/12/20 03/29/21 03/28/21 06:00 History liraglutide 0.6 mg/0.1 mL (18 mg/3 1.8 mg SUBCUT DAILY #6 ml 06/21/20 03/29/21 03/28/21 06:00 Rx mL) subcutaneous pen injector apixaban 5 mg tablet 5 mg PO BID 30 Days #60 tab 08/23/20 03/29/21 03/26/21 06:00 Rx clopidogrel 75 mg tablet 75 mg PO DAILY #90 tab 11/03/20 03/29/21 03/28/21 06:00 Rx diphenhydramine HCl 25 mg capsule 25 mg PO .bedtime PRN cap 11/03/20 03/29/21 03/28/21 20:00 History furosemide 20 mg tablet 20 mg PO DAILY tab 11/03/20 03/29/21 03/28/21 06:00 History omega-3 fatty acids 1,000 mg 1,000 mg PO DAILY 11/03/20 03/29/21 03/28/21 06:00 History capsule empagliflozin 10 mg tablet 10 mg PO DAILY 90 Days #90 tab 11/16/20 03/29/21 03/28/21 06:00 Rx pen needle, diabetic 32 gauge x #100 ea 12/03/20 01/04/21 Unknown Rx 32 isosorbide dinitrate 20 mg tablet 20 mg PO BID 90 Days #180 tab 12/20/20 03/29/21 03/28/21 20:00 Rx lorazepam 1 mg tablet 1 mg PO DAILY PRN #2 tab 01/12/21 03/29/21 Unknown Rx glimepiride 4 mg tablet See Rx Instructions .ROUTE 01/31/21 03/29/21 03/28/21 06:00 Rx .COMPLEX #30 tab nitroglycerin 0.4 mg sublingual 0.4 mg SUBLINGUAL Q5M PRN #100 tab 02/02/21 03/29/21 Unknown Rx tablet sacubitril 97 mg-valsartan 103 mg 1 tab PO BID #60 tab 02/02/21 03/29/21 03/28/21 06:00 Rx tablet digoxin 125 mcg (0.125 mg) tablet 125 mcg PO DAILY #90 tab 02/23/21 03/29/21 03/28/21 06:00 Rx metoprolol tartrate 100 mg tablet See Rx Instructions .ROUTE 03/13/21 03/29/21 03/28/21 06:00 Rx .COMPLEX #180 tab levothyroxine 112 mcg tablet See Rx Instructions .ROUTE 03/18/21 03/29/21 03/28/21 06:00 Rx .COMPLEX #30 tab ranolazine 500 mg tablet,extended 500 mg PO BID #60 tab 03/28/21 03/29/21 03/28/21 06:00 Rx release,12 hr Allergies Allergy/AdvReac Type Severity Reaction Status Date / Time No Known Allergies Allergy Verified 02/27/21 08:41 PFSH Acute PFSH: Medical History Anxiety Atherosclerotic heart disease [place] coronary artery w/angina pectoris Atherosclerotic heart disease of [place] coronary artery with unstable angina pectoris CAD (coronary artery disease) Dyslipidemia Essential hypertension HTN (hypertension) Hypothyroidism CRISTY (obstructive sleep apnea) Paroxysmal atrial fibrillation Peripheral arterial disease Type 2 diabetes mellitus without complications Vitamin D deficiency Surgical History History of heart surgery History of PTCA History of surgery on upper extremity Family History Father CAD (coronary artery disease) Mother CAD (coronary artery disease) Stroke Diabetes Family/Other CAD (coronary artery disease) Denies family history of Clotting disorder Dementia Chronic kidney disease (CKD) Suicide Anesthesia complication Bleeding disorder Lung disease Cancer Social History Smoking and tobacco status: current every day smoker cigarettes Packs smoked per day: 1 Alcohol intake: current Alcohol intake frequency: holidays/special occasions only History of recent travel: No Vitals/I&O/Wt Last Vital Signs Temp 97.9 F 03/29/21 06:35 Pulse 132 H 03/29/21 14:00 Resp 16 03/29/21 06:35 BP 112/72 03/29/21 08:30 Pulse Ox 95 03/29/21 06:35 03/29/21 03/29/21 03/29/21 06:59 14:59 22:59 Intake Total 600 / 600 Balance 600 / 600 Weight last 48 hrs Weight 249 lb Physical Exam Narrative: EXAM NARRATIVE: GENERAL: The patient is alert and oriented times three. Not in any acute distress. HEENT: No significant pallor, icterus or lymphadenopathy.Oral cavity: There are no mucous membrane lesions. NECK: Trachea appears to be central. No masses noted. No JVD or thyromegaly appreciated. RESPIRATORY: Chest is symmetrical. No intercostals muscle retraction or any accessory muscle activation. There is no chest wall tenderness. Breath sounds are heard bilaterally. No rales or rhonchi heard. No evidence of any consolidation. BREASTS: Deferred. HEART: The heart sounds are normal. No S3 or S4. No systolic murmur the left sternal border. No diastolic murmurs. No pericardial rub ABDOMEN: No vessel pulsations or distention. No tenderness. No organomegaly appreciated. Bowel sounds are normally heard. : Deferred. RECTAL: Deferred. LYMPHATIC: No lymphadenopathy noted in the neck or groin. EXTREMITIES: No edema or cyanosis. No clubbing. Peripheral pulses are weak bilaterally. No cyanosis MUSCULOSKELETAL: No acute joint deformities or swelling SKIN: There are no significant rashes or ecchymosis NEUROPSYCHIATRIC: The patient is alert and oriented x3. Appears to be in a good mood. No tremors or rigidity noted. A&P Assessment and plan (1) Atherosclerotic heart disease of [place] coronary artery with unstable angina pectoris: Patient was found to have patent venous graft to the LAD and obtuse marginal artery. High-grade lesion in the proximal LAD. Total occlusion of the mid circumflex. Status: Acute Qualifiers: [place] vs. transplanted heart: [place] heart Qualified Code(s): I25.110 - Atherosclerotic heart disease of [place] coronary artery with unstable angina pectoris (2) Chronic atrial fibrillation: Anticoagulation on hold in view of the cardiac colorization. Status: Acute (3) Type 2 diabetes mellitus without complications: The diabetes is fairly under control. Status: Acute Qualifiers: Diabetes mellitus detention insulin use: without detention use Qualified Code(s): E11.9 - Type 2 diabetes mellitus without complications (4) Hypothyroidism: Clinically euthyroid. Status: Acute Qualifiers: Hypothyroidism type: unspecified Qualified Code(s): E03.9 - Hypothyroidism, unspecified (5) Essential hypertension: Currently normotensive. Will continue on the current medications. Status: Acute (6) Peripheral arterial disease: Peripheral artery disease does not appear to be severe at this point. We will continue on the current medications. Status: Acute Additional A&P Information In view of the patient's ongoing symptoms, he may benefit from a PCI of the left main artery. This will be scheduled in the morning with anesthesia support. I discussed with the patient and his in detail the angiogram findings and its implications. The treatment plan also was discussed. Patient and his understood this well and consented to proceed. Attestations Medical Necessity Statement*: Patient may require at least 1 midnight stay, for further management of this condition. Coding Level of Care Code Acute Nutrition Therapist for Domenic Fwcharito Diagnoses Atherosclerotic heart disease of [place] coronary artery with unstable angina pectoris I25.110 [place] vs. transplanted heart: [place] heart Chronic atrial fibrillation I48.20 Type 2 diabetes mellitus without complications E11.9 Diabetes mellitus detention insulin use: without detention use Hypothyroidism E03.9 Hypothyroidism type: unspecified Essential hypertension I10 Peripheral arterial disease I73.9
--- NOTE | 2021-03-29 22:31 | PM.MISC ---
Miscellaneous Note Purpose of Documentation: Patient signed out AGAINST MEDICAL ADVICE Note: The patient presents for a complex coronary intervention with anesthesia backup in the morning. Apparently he did not want to stay longer in the hospital. According the nurse, he left the hospital without telling the hospital personnel around 4 PM. However his 's told the nurse that he will be coming back to the hospital for the procedure in the morning
== END 2021-03-29 15:55 | disposition home or self-care (01) ==
LOC: CCL 05:49 → CSU 09:24
PROVIDERS: PCP Nurse Practitioner Family; Visit Provider Internal Medicine Cardiovascular Disease
DX: I65.22 Occlusion and stenosis of left carotid artery (principal); R07.9 Chest pain, unspecified; Z95.1 Presence of aortocoronary bypass graft; I10 Essential (primary) hypertension; E78.5 Hyperlipidemia, unspecified; F41.9 Anxiety disorder, unspecified; I25.118 Atherosclerotic heart disease of native coronary artery with other forms of angina pectoris; E03.9 Hypothyroidism, unspecified; G47.33 Obstructive sleep apnea (adult) (pediatric); I48.0 Paroxysmal atrial fibrillation; E11.9 Type 2 diabetes mellitus without complications; E55.9 Vitamin D deficiency, unspecified; Z82.49 Family history of ischemic heart disease and other diseases of the circulatory system; F17.210 Nicotine dependence, cigarettes, uncomplicated
CPT/HCPCS: 36415; 75625; 93459; C1769; C1887; C1894; G0378; J1160; J1644; J1940; J2250; J3010; J7030; Q0163; Q9967

== ENCOUNTER 2021-03-30 05:53 | Day surgery (SDC) | payer MEDICARE, SELFPAY ==
[2021-03-30] VITALS (9 sets, daily range): BP systolic 100–121; BP diastolic 63–90; PULSE 66–127; RESP 12–22; TEMP 36; O2SAT 96; BMI 36.7
--- NOTE | 2021-03-30 06:00 | XACV_ITS ---
Ht: 175 cm Wt: 113 kg BSA: 2.39 m2 Gender: Male : 1965 Exam Priority: Routine Procedure(s): Procedure Description: Diagnostic procedure Procedure Description: PCI procedure Procedure Description: Drug Eluting Coronary Stent Procedure Description: PTCA Procedure Description: Miscellaneous Procedure Description: ACT Diagnostic Cath Status: Urgent Diagnostic Findings * Distal left main artery: severe 90% stenosis, MANE: 3 flow. * This is scheduled PCI of the protected distal left main artery.For complete diagnostic procedure report, please refer to the report from 03/29/2021. * Coronary angiography shows right dominance. PCI Status: Urgent PCI Indication: New Onset Angina <= 2 months Interventional Findings * Indication: Patient has been having unstable angina symptoms, using multiple nitros every day. Diagnostic cath performed by Dr Perez on 03/29/21 and patient is here for PCI of the distal left main as it is the likely culprit for the unstable angina symptoms. * Procedure detail:We engaged the left main artery with a XB 3.5 guide catheter. A 0.014 run through guidewire was used to cross the distal left main artery and was put in the ramus artery. We used a 2.25x12 mm semi comliant balloon to predilate the stenosis. This was followed by placement of a 2.5x15mm Resolute [place] stent. At this time final angiogram was performed that showed excellend stent expansion, no residual stensis and MANE 3 flow. Guidewire and guide catheter were removed. Left femoral artery sheath was removed and angioseal was used to obtain hemostasis. * Left Main to Proximal Left Anterior Descendin% stenosis treated with a AB TREK 2.25X12 RX BALLOON, and MDT R DOREEN 2.5X15 AAKASH. 0% residual stenosis, MANE: 3 flow. Conclusions 1. There is severe coronary artery disease with distal left main stenosis. 2. Left Main was treated with a Balloon, and Drug Eluting Stent. 3. Patient has prior CABG. Recommendations * Transfer to [facility]. * Plavix and eliquis for atleast 1 year. * High intensity statin therapy. * Outpatient cardiology follow up in 4 weeks. Interventional RX Recommendation: PCI w/o planned CABG Diagnostic RX Recommendation: PCI w/o planned CABG Anticoagulation: Heparin Pressures Phase:Rest AO : 83 / 75 ( 74 ) @ 6:54:00 AM Clinical Evaluation EBL: 5mL-10mL Procedural Details Procedure Consent Obtained. Admit Source: Out Patient. Pre-Procedure Time Out. Identified patient by full name and date of as verbalized by the patient/guarantor. Does the consent match the physician's order: Yes. Accurate & Complete Informed Consent: Yes. Inpatient/Outpatient History & Physical on Chart: Yes. If H&P is completed, is and addenduem needed: Yes; If yes, is the addendum complete: N/A. Visualize and Verify Site with Patient/Guarantor: N/A. Relevant Radiology Images available: N/A. Pre-op teaching completed and patient verbalized understanding. The risks, benefits, and alternatives of sedation and/or procedure were discussed by physician. The patient agrees to continue. Procedure started. [facility] Clinical Fraility Score: 3: Managing Well. 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 Chest Pain Symptom Assessment: Typical Angina Symptoms. Cardiovascular Instability: No,. Correct patient, site and procedure confirmed by cath team. PERRLA. Strong, equal hand sagger maker bilaterally. Lungs clear x 5 lobes. IV Site on Arrival: 20 gauge in the left anticubital. Pre Procedural Pulses: bilateral dorsalis pedis was Doppled. Pre Procedural Pulses: right posterior tibial was Doppled. Pre Procedural Pulses: left posterior tibial was 1+. Pre Procedural Pulses: bilateral radial was 3+. Oxygen started at 2liters/min via nasal canula. bilateral groins was prepped with chloroprep then draped in the usual sterile fashion. Physician notified. Baseline sample Acquired. HR: 57 BPM. Physician arrived. Anesthesiologist Yenifer arrived to sedate patient. Baseline sample Acquired. HR: 68 BPM. Physician scrubbed in. Immediate Pre-Procedure Time Out. Correct Patient: Yes; Correct Procedure: Yes; Correct Site: Yes; Correct Patient Position: Yes; Correct Supplies: Yes; Dried Flammable Prep: Yes; Blood Products Available: N/A;. Lidocaine 1% infiltrated to the right groin. Lidocaine 1% infiltrated to the left groin. Arterial access obtained with micropuncture set. 6 [place] XB 3.5 guide catheter was inserted over the wire. Runthrough guidewire was advanced through the guide catheter to lesion in the LMCA. Inflation number : 1 A AB TREK 2.25X12 RX BALLOON was prepped and advanced across the LMCA , then inflated to 8 HANY for 0:25 seconds. Inflation number: 2 The AB TREK 2.25X12 RX BALLOON was reinflated across the LMCA, to 10 HANY for 0:25 seconds. Balloon out. Inflation Number : 3 A PRAVIN Cota DOREEN 2.5X15 AAKASH -Lot Number# [id number] exp date: 02-20-2022 was prepped and advanced across the LMCA. The stent was deployed at 12 HANY for 0:26 seconds. Stent balloon out over wire. Wire out. Guide catheter out. ACT drawn. Results 198 seconds. Therapeutic limits - pre-heparin administration 90-150 seconds and monitoring heparin during a vascular procedure >250 seconds. groin shot performed through the sheath. Angioseal lot#[id number] placed without complications. No signs or symptoms of hematoma noted. Sterile dressing applied per usual sterile fashion. Post Procedure: Pulses reassessed and unchanged. PERRLA. Strong, equal hand sagger maker bilaterally. No VTE prophylaxis required. A Angio-Seal VIP ([place]) was successful obtaining hemostatsis at the Left Femoral artery insertion site. Contrast type used: Visipaque 320 mgI/mL, 500 mL bottle. Contrast Material : Visipaque 116 ml. Medication's Wasted: Lidocaine 1% = 10 mL. Medication's Wasted: Heparin = 4000 units. Medication's Wasted: Nitro = 49.9 mg. Total IV fluids: 200 mL. PCI Indication: unstable Angina. Post-op diagnosis: severe Dist LM stenosis. Complications: none. Estimated blood loss: 5mL-10mL. Procedure completed. Patient transferred by bed to 1st floor. Vital chart was stopped. Access Site Site: Left Femoral artery Sheath Size: 6 Fr Hemostasis Method: Angio-Seal VIP ([place]) Hemostasis Success: Successful Procedure Medications Start: 7:08 AM Stop: 7:08 AM Medication: Plavix Amount: 600 mg Route: P.O. Start: 7:43 AM Stop: 7:43 AM Medication: Heparin Amount: 20051 units Route: I.V. Start: 7:56 AM Stop: 7:56 AM Medication: Nitrogylcerin Amount: 100 mcg Route: I.C. Start: 8:03 AM Stop: 8:03 AM Medication: Heparin Amount: 2000 units Route: I.V. Start: 8:04 AM Stop: 8:04 AM Medication: Aggrastat 12.5 mg/250 mL Amount: 57.5 ml Route: I.V. bolus Start: 8:04 AM Stop: 8:04 AM Medication: Aggrastat 12.5 mg/250 mL Amount: 20.7 ml/hr Route: I.VClay astorag I, the attending physician, have reviewed and verified all procedure medications. Yes, all medications given per verbal order History/Risk Factors Hypertension: Yes Dyslipidemia: Yes Tobacco Use: Current/Recent(w/in 1 year) Prior Interventions PCI: Yes CABG: Yes Date of PCI: 07/12/2015 Report Signatures Finalized by Gerald Rivers MD on 04/08/2021 06:48 PM
[2021-03-30] MEDS: diphenhydrAMINE 50 mg Capsule PO (06:49)
--- NOTE | 2021-03-30 07:08 | P.ANESASSM_ITS ---
Pre-Anesthetic Assessment Pre-Anesthetic Assessment: Height/Weight: Height 1.75 m Weight 112.945 kg Temp Pulse Resp BP Pulse Ox 96.8 F L 66 16 105/63 96 03/30/21 06:39 03/30/21 06:39 03/30/21 06:39 03/30/21 06:39 03/30/21 06:39 Preop Diagnosis: ASHD/increasing chest pain/leg pain Proposed Procedure: Operation Date: 03/30/21 07:00 Proposed Procedures p left Cardiac Catheterization 75258 i48.0(Left) - Tanner Ulloa anesthetic complications: none Was Beta Graeme taken within 24 hours: Yes Was Clonidine taken within 24 hours: N/A Last Intake: 20:00 Social: Social History: Tobacco and No alcohol Packs per day: 1/2 Pack years: 30 Exam: Pre-Anes Outpt Exam: alert and oriented x 3 Airway: Submandibular: WNL Cervical ROM: WNL MP: 2 Additional comments: top denture Pulmonary: Pulmonary: Cough, Sleep apnea and SOB Comments: cpap CV/HEM: CV/HEM: Afib, Angina (Unstable), CAD, CHF, DVT and NH Comments: cabg 2017 x3 : : None reported Hepatic: Hepatic: None reported GI: GI: None reported Metabolic: Metabolic: DM, Morbid obesity and Thyroid Musc/skel: Musc/skel: OA/DJD Neuropsych: Neuropsych: Anxiety Anesthetic Plan: ASA status: 4 Anesthesia: Anesthesia Evaluation and MAC Risk of > 500 ml blood loss (7ml/kg in children): Yes, adequate IV access and fluids planned Meds/Allergies Current Medications: Current Medications Generic Name Dose Route Start Last Admin Trade Name Freq PRN Reason Stop Dose Admin Sodium Chloride 1,000 mls @ 50 ml s/hr 03/30/21 06:40 03/30/21 06:49 Sodium Chloride 0.9% IV 03/31/21 02:39 Not Given .Q20H ONE PFSH Anesthesia PFSH: Medical History Anxiety Atherosclerotic heart disease [place] coronary artery w/angina pectoris Atherosclerotic heart disease of [place] coronary artery with unstable angina pectoris CAD (coronary artery disease) Dyslipidemia Essential hypertension HTN (hypertension) Hypothyroidism CRISTY (obstructive sleep apnea) Paroxysmal atrial fibrillation Peripheral arterial disease Type 2 diabetes mellitus without complications Vitamin D deficiency Surgical History History of heart surgery History of PTCA History of surgery on upper extremity Family History Father CAD (coronary artery disease) Mother CAD (coronary artery disease) Stroke Diabetes Family/Other CAD (coronary artery disease) Denies family history of Clotting disorder Dementia Chronic kidney disease (CKD) Suicide Anesthesia complication Bleeding disorder Lung disease Cancer Social History Smoking and tobacco status: current every day smoker cigarettes Packs smoked per day: 1 Alcohol intake: current Alcohol intake frequency: holidays/special occasions only History of recent travel: No Data Anesthesia Cardiac Studies: No Data to Display
--- NOTE | 2021-03-30 07:13 | W.PM.OPSUD ---
Surgery/Procedure H&P Update DATE OF PROCEDURE: March 30, 2021 DATE H&P PERFORMED: 02/27/21 H&P UPDATE INFORMATION: I have reviewed H&P completed within last 30 days, I have examined patient prior to procedure and No changes to prior documentation PREOP DIAGNOSIS: Unstable angina/ severe distal left main stenosis PRIMARY INDICATION FOR PROCEDURE: Unstable angina/severe distal left main stenosis PLANNED PROCEDURE: Operation Date: 03/30/21 07:00 Proposed Procedures p left Cardiac Catheterization 33482 i48.0(Left) - Gerald Rivers M.D Percutaneous coronary intervention PATIENT REASSESSED PRIOR TO SEDATION, WITH NO CHANGE NOTED: Yes PHYSICAL EXAM: alert, oriented x 3 and clear to auscultation bilaterally OTHER PERTINENT EXAM FINDINGS: Irregularly irregular rhythm Procedure to be done with anesthesia support AIRWAY EVAL/ANESTHESIA PLAN: ASA III
--- NOTE | 2021-03-30 08:26 | PC.NURSE ---
patient arrived from the cathlab via bed. angio seal to the left groin. dressing in place, clean and intact. no hematoma present. patient has been educated on activity restriction and needs persistent reinforcement. patient has been oriented to room and call tniajero. patient states he is going home after 4 hours is up.
[2021-03-30] MEDS: ALPRAZolam 0.25 mg Tablet PO (09:06)
[2021-03-30] MEDS: atorvastatin 40 mg Tablet 20 MG PO (09:06)
[2021-03-30] MEDS: sodium chloride 0.9% 1,000 ML 100 ML IV (09:06)
[2021-03-30] MEDS: levothyroxine 112 mcg Tablet PO (09:06)
--- NOTE | 2021-03-30 09:14 | PC.NURSE ---
patient reports that he took imdur, ranexa, metoprolol, and digoxin this morning prior to procedure
--- NOTE | 2021-03-30 09:28 | PC.NURSE ---
patient states he is going to get dressed within 30 minutes, patient has been educated on risks of getting up before allotted bed rest time is up. patient has new drainage noted on bandage, drainage has been marked and will be monitored.
--- NOTE | 2021-03-30 10:31 | PC.NURSE ---
Patient refuses to wear blood pressure cuff and refuses to have blood pressure monitored at this time. Patient stated that he felt short of breath, oxygen saturation is WNL at 93% but nurse attempted to apply 2 L NC for comfort, while nurse was applying NC patient became irrate and said get me my fucking clothes right fucking now nurse educated patient about importance of activity restriction and told patient that it would not be in his best interest to put clothes on at this time. Patient then said to please leave him alone.
--- NOTE | 2021-03-30 10:59 | PC.CHAP ---
Pastoral Care Encounter/Spiritual Assessment Type of Contact [] Declined grocery shopper visit [] Patient/Family/Request visit [] Outpatient visit [x] Follow-up visit [] Physician referral [] Code/Alert [] Routine visit [] Staff referral [] Actively dying [] Patient sleeping [] Family support [] [] Out of room [] Palliative care [] [] Receiving care in room [] Pre-surgical visit [] Trauma [] Long length of stay [] ICU visit [] Other: Relational/Emotional Strength [] Patient feels connected with others/family/visitors/staff [] Distress [] Loneliness/isolation [] Abandonment Spirituality of Patient [] Person of Giselle [] Attends Nondenominational of their Giselle [] Believes in Prayer [] Reads Bible or Uatsdin materials [] There are Spiritual issues to be addressed Dental Patient Coordinator Interventions [] Prayer [] Active listening [] Non-anxious presence [] Spiritual/emotional support [] Crisis/trauma care [] Spiritual counseling [] Bereavement support [] Provided bereavement packet [] Provided Bible/devotional materials [] Provided toy/stuffed animal, coloring book to patient or family member [] Provided Communion [] Anointing/[place] [] Salvation [] Completed spiritual assessment [] Other: Impact on Illness or Injury [] Angry [] Fearful [] Anxious [] Often cries [] Exhaustion [] Unable to work [] Unable to attend denominational [] Unable to walk/stand [] Unable to read [] Unable to drive [] Unable to eat/drink [] Unable to sleep [] Unable to be with family [] Patient intubated [] Other: Summary Follow-up visit Time spent with patient 5 mins
--- NOTE | 2021-03-30 11:15 | PC.NURSE ---
Patient has been using vulgar language, has been extremely irritable all morning. Patient has been educated by nurse and doctor regarding the importance of monitoring post cath procedure and continues to be non-compliant. ADMINISTRATION DEAN reported to the nurse that patient took own IV out and left AMA with out notifying anyone. Doctor was notified.
--- NOTE | 2021-03-30 12:10 | PM.MISC ---
Miscellaneous Note Purpose of Documentation: Patient left against medical advice Note: Patient underwent PCI of the left main artery in the morning. Per floor nurses, he was non-compliant, verbally abusive and did not want to stay in the hospital. I spoke with patient that it is very important that we monitor him in hospital overnight because of femoral access (had angioseal) and left main stent. Also we needed to have him on monitoring manager. He agreed to monitoring manager. I was informed later that patient left against medical advice without informing any one. He had done that yesterday as well. I called his and emphasized the need to continue plavix and restarting eliquis tonight if his femoral access site does not show hematoma. She expressed understanding and said that they will ensure that.
== END 2021-03-30 12:37 | disposition left against medical advice (07) ==
LOC: CCL 05:54 → CSU 08:10
PROVIDERS: PCP Nurse Practitioner Family; Visit Provider Internal Medicine
DX: I48.0 Paroxysmal atrial fibrillation (principal); E78.5 Hyperlipidemia, unspecified; F17.210 Nicotine dependence, cigarettes, uncomplicated; G47.30 Sleep apnea, unspecified; I48.91 Unspecified atrial fibrillation; I25.10 Atherosclerotic heart disease of native coronary artery without angina pectoris; I25.2 Old myocardial infarction; Z95.1 Presence of aortocoronary bypass graft; I11.0 Hypertensive heart disease with heart failure; I50.9 Heart failure, unspecified; E11.9 Type 2 diabetes mellitus without complications; E66.01 Morbid (severe) obesity due to excess calories; Z68.36 Body mass index [BMI] 36.0-36.9, adult; F41.9 Anxiety disorder, unspecified; G47.33 Obstructive sleep apnea (adult) (pediatric); E03.9 Hypothyroidism, unspecified
CPT/HCPCS: 36415; 85347; C1725; C1760; C1769; C1874; C1887; C1894; C9600; J1644; J2250; J2704; J3246; J3490; J7030; Q0163; Q9967

== ENCOUNTER → 2021-04-06 11:07 | Outpatient (BNVA) | payer MEDICARE, SELFPAY | PROVIDERS: PCP Nurse Practitioner Family; Visit Provider Nurse Practitioner Family | DX: I25.110 Atherosclerotic heart disease of native coronary artery with unstable angina pectoris (principal); I48.20 Chronic atrial fibrillation, unspecified; I25.10 Atherosclerotic heart disease of native coronary artery without angina pectoris | CPT/HCPCS: 80048; 84443 ==

== ENCOUNTER → 2021-05-01 15:23 | Outpatient (BNVA) | payer MEDICARE, SELFPAY | PROVIDERS: PCP Nurse Practitioner Family; Visit Provider Registered Nurse Neonatal Intensive Care | DX: Z20.822 Contact with and (suspected) exposure to COVID-19 (principal) | CPT/HCPCS: 87635 ==

== ENCOUNTER → 2021-05-03 18:20 | Outpatient (BNVA) | payer MEDICARE, SELFPAY | PROVIDERS: PCP Nurse Practitioner Family; Visit Provider Nurse Practitioner Family | DX: R05 Cough (principal); J06.9 Acute upper respiratory infection, unspecified; Z68.35 Body mass index [BMI] 35.0-35.9, adult; F17.210 Nicotine dependence, cigarettes, uncomplicated; Z71.89 Other specified counseling | CPT/HCPCS: 71046 ==

== ENCOUNTER → 2021-05-08 10:56 | Outpatient (BNVA) | payer MEDICARE, SELFPAY | PROVIDERS: PCP Nurse Practitioner Family; Visit Provider Internal Medicine Cardiovascular Disease | DX: I48.20 Chronic atrial fibrillation, unspecified (principal); E78.5 Hyperlipidemia, unspecified; N18.9 Chronic kidney disease, unspecified; I25.5 Ischemic cardiomyopathy; I25.118 Atherosclerotic heart disease of native coronary artery with other forms of angina pectoris; E03.9 Hypothyroidism, unspecified; I73.9 Peripheral vascular disease, unspecified | CPT/HCPCS: 80076; 80162; 84443 ==

== ENCOUNTER 2021-06-07 07:47 | Outpatient (CLI) | payer MEDICARE, SELFPAY ==
--- NOTE | 2021-06-07 07:52 | NMCV_ITS ---
NM card bld pool r or s*[id number] John Solitario Age: 55 Gender: M : 1965 Exam Date: 06/07/2021 07:52 Ordering Phys: Mark Perez MD ([email or web address]) Technologist: KAREN Vicente Exam Location: [facility] [place] Indications: A FIB Camera Used: [employer] 630 Imaging Protocol: three view gated blood pool study Technical Image Quality: Good Dose: Admin Site: Administered By: [id number] Tagged RBCs: 25.4 IV - Right KAREN Vicente Antecubital PYP: EJECTION FRACTION: Automatic LV EF: 28 Rest RV EF: Manual LV EF: FINDINGS There is hypokinesia of the left ventricle. LV ejection fraction of 28% CONCLUSIONS 1. Diminished elevation fraction of 28%. 2. LV wall motion analysis revealing diffuse hypokinesia of the left ventricle Dr Mark Perez MD FACC (Electronically Signed) Final Date: 08 June 2021 00:24 S
[2021-06-07 08:36] LABS: Alanine Aminotransferase 19 U/L (0-41); Albumin Level 4.2 g/dL (3.5-5.2); Alkaline Phosphatase 68 IU/L (40-130); Aspartate Amino Transferase 18 U/L (0-40); Chol HDL Ratio 4.63 mg/dL (1.0-5.00); Cholesterol 148 mg/dL (0-200); Globulin 3.1 g/dL (1.3-4.6); HDL Cholesterol 32 mg/dL (60-100); LDL Cholesterol Calculated 89 mg/dL (50-129); LDL HDL Ratio 2.78 RATIO (0.00-3.22); Total Bilirubin 0.5 mg/dL (0.15-1.2); Total Protein 7.3 g/dL (6.6-8.7); Triglycerides 136 mg/dL (0-150)
== END 2021-06-07 07:48 | disposition home or self-care (01) ==
PROVIDERS: PCP Nurse Practitioner Family; Visit Provider Internal Medicine Cardiovascular Disease
DX: E78.5 Hyperlipidemia, unspecified (principal); I25.5 Ischemic cardiomyopathy
CPT/HCPCS: 36415; 78472; 80061; 80076; A9560

== ENCOUNTER 2021-10-18 07:36 | Outpatient (CLI) | payer MEDICARE, SELFPAY ==
--- NOTE | 2021-10-18 07:47 | USCV_ITS ---
John Solitario Age: 55 Gender: M : 1965 Exam Date: 10/18/2021 08:10 Ordering Phys: Mark Perez MD ([email or web address]) Technologist: Rosi Lozano Exam Location: [facility] [place] Indication: Cardiomyopathy BP: 120 / 70 HR: 69 Rhythm: Sinus Technical Quality: Adequate MEASUREMENTS (Male / Female) Normal Values 2D ECHO LV Diastolic Diameter PLAX 3.8 cm 4.2 - 5.9 / 3.9 - 5.3 cm LV Systolic Diameter PLAX 4.6 cm LV Chamber Size 5.0 cm IVS Diastolic Thickness 5.2 cm 0.6 - 1.0 / 0.6 - 0.9 cm IVS Systolic Thickness 1.9 cm LVPW Diastolic Thickness 1.1 cm 0.6 - 1.0 / 0.6 - 0.9 cm LVPW Systolic Thickness 1.9 cm RV Chamber Size 2.4 cm LVOT Diameter 2.1 cm LV Ejection Fraction 2D Teich 16.1 % LV Ejection Fraction MOD 2C 54.9 % LV Ejection Fraction 2C AL 57.7 % LA Diameter 4.6 cm LA Width 4.3 cm LA Height 5.9 cm RA Width 3.8 cm RA Height 4.4 cm Aorta at Sinotubular Diameter 2.9 cm M-MODE Aortic Annulus Diameter 3.8 cm LA Ao Ratio MM 1.5 MV E Point Septal Separation 1.3 cm DOPPLER AV Peak Velocity 115.0 cm/s LVOT Peak Velocity 82.0 cm/s AV Area Cont Eq vti 2.7 cm squared AV Area Cont Eq pk 2.6 cm squared MV Area PHT 4.9 cm squared Mitral E to A Ratio 1.0 MV E' Velocity 45.5 cm/s Mitral E to MV E' Ratio 14.0 Mitral E to LV E' Lateral Ratio 12.1 Mitral E to LV E' Septal Ratio 16.4 TR Peak Velocity 207.2 cm/s TR Peak Gradient 17.2 mmHg TR Mean Velocity 129.3 cm/s TR Mean Gradient 7.9 mmHg TR Velocity Time Integral 62.5 cm TV Peak E Velocity 59.0 cm/s Right Atrial Pressure 3.0 mmHg Pulmonary Artery Systolic Pressu 20.2 mmHg PV Peak Velocity 83.0 cm/s RV Acceleration Time 0.1 s RV Ejection Time 0.3 s RV AcT/ET 0.3 FINDINGS Left Ventricle Mildly dilated left ventricle with ejection fraction of around 40%(visual). Diffuse hypokinesia of the left ventricle. Mild concentric left ventricular hypertrophy Right Ventricle Normal right ventricular size and systolic function. Right Atrium The right atrium is normal in size. Left Atrium Mildly increased left atrial size. Mitral Valve Mild mitral valve regurgitation. Aortic Valve Thickened aortic valve. Tricuspid Valve Trace tricuspid valve regurgitation. Pulmonic Valve Structurally normal pulmonic valve without significant stenosis. There is no pulmonic regurgitation. Pericardium No pericardial effusion. Aorta Normal aortic annulus size. CONCLUSIONS Mildly dilated left ventricle with ejection fraction of around 40%(visual). Diffuse hypokinesia of the left ventricle. Mild concentric left ventricular hypertrophy. Mildly increased left atrial size. Thickened aortic valve. Trace tricuspid valve regurgitation. Estimated pulmonary artery peak systolic pressure is within normal limits Mild mitral valve regurgitation. There is no pericardial effusion. There are no intracardiac masses. Compared to the study from 02/14/2021, there may not be a significant change Dr Mark Perez MD FAC (Electronically Signed) Final Date: 18 October 2021 18:56 S
== END 2021-10-18 07:37 | disposition home or self-care (01) ==
PROVIDERS: PCP Nurse Practitioner Family; Visit Provider Internal Medicine Cardiovascular Disease
DX: I25.5 Ischemic cardiomyopathy (principal); I08.3 Combined rheumatic disorders of mitral, aortic and tricuspid valves
CPT/HCPCS: 93306

== ENCOUNTER → 2021-11-13 10:13 | Outpatient (BNVA) | payer MEDICARE, SELFPAY | PROVIDERS: PCP Nurse Practitioner Family; Visit Provider Nurse Practitioner Family | DX: Z20.822 Contact with and (suspected) exposure to COVID-19 (principal) | CPT/HCPCS: 87635 ==

== ENCOUNTER → 2022-01-24 09:29 | Outpatient (BNVA) | payer MEDICARE, SELFPAY | PROVIDERS: PCP Family Medicine; Visit Provider Family Medicine | DX: Z76.89 Persons encountering health services in other specified circumstances (principal); Z12.5 Encounter for screening for malignant neoplasm of prostate; I48.20 Chronic atrial fibrillation, unspecified; I48.0 Paroxysmal atrial fibrillation; I10 Essential (primary) hypertension; E78.5 Hyperlipidemia, unspecified; E03.9 Hypothyroidism, unspecified; F17.200 Nicotine dependence, unspecified, uncomplicated | CPT/HCPCS: 80053; 82043; 83036; 84153; 84439; 84443; 85025 ==

== ENCOUNTER 2022-03-09 12:20 | Emergency (ER) | payer OTHER, MEDICARE, SELFPAY ==
--- NOTE | 2022-03-09 12:34 | ECG_ITS ---
[facility] Test Date: 2022-03-09 Pat Name: John Solitario Department: Room: Gender: Male Vascular Surgery Physician: : 1965 Requested By: Ramesh Cordova Order Number: [id number] Jarred MD: Praveena Reza M.D. Measurements Intervals [place] Rate: 84 P: 20 ME: 228 QRS: 66 QRSD: 180 T: 265 QT: 455 QTc: 539 Interpretive Statements SINUS RHYTHM WITH FIRST DEGREE AV BLOCK LEFT BUNDLE BRANCH BLOCK [120+ ms QRS DURATION, 80+ ms Q/S IN V1/V2, 85+ ms R IN I/aVL/V5/V6] Compared to ECG 03/14/2017 17:58:47 First degree AV block now present Left bundle-branch block now present Ventricular premature complex(es) no longer present Intraventricular conduction delay no longer present T-wave abnormality no longer present Electronically Signed On 03-09-2022 16:16:27 CDT by Praveena Reza M.D. [id number]
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
[2022-03-09 12:46] VITALS: BP 143/81; PULSE 86; RESP 18; O2SAT 97
[2022-03-09 13:00] LABS: Basophils % 0.4 %; Eosinophils # 0.2 10^3/uL (0.0-0.8); Eosinophils % 2.4 %; Hematocrit 45.6 % (42.0-52.0); Hemoglobin 15.4 g/dL (11.7-16.6); Lymphocytes # 3.7 10^3/uL (0.8-4.8); Mean Corpuscular HGB Conc 33.8 g/dL (30.0-36.0); Mean Corpuscular Volume 91.9 fl (80-94); Mean Platelet Volume 10.8 fL (7.4-10.4); Monocytes # 0.9 10^3/uL (0.2-0.9); Monocytes % 8.6 %; Neutrophils # 5.05 10^3/uL (1.8-7.7); Neutrophils % 51.3 %; Nucleated Red Blood Cells % 0 %; Platelet Count 258 10^3/cmm (130-400); Red Blood Count 4.96 10^6/uL (4.1-5.3); Red Cell Distribution Width 13.5 % (12.1-15.1); White Blood Count 9.9 10^3/uL (4.0-10.0)
[2022-03-09 13:19] LABS: Alanine Aminotransferase 27 U/L (0-41); Albumin Level 4.7 g/dL (3.5-5.2); Alkaline Phosphatase 75 IU/L (40-130); Anion Gap 18.8 (5-19); Aspartate Amino Transferase 17 U/L (0-40); Blood Urea Nitrogen 11 mg/dL (6-20); Calcium 8.9 mg/dL (8.5-10.5); Carbon Dioxide 22 mmol/L (22-29); Chloride 101 mmol/L (98-107); Globulin 2.4 g/dL (1.3-4.6); Glomerular Filtration Rate 87.6 mL/min (90-130); Glucose 108 mg/dL (65-115); Osmolality Calculated 286 mOsm/kg (285-295); Potassium 3.8 mmol/L (3.5-5.1); Sodium 138 mmol/L (136-145); Total Bilirubin 0.5 mg/dL (0.15-1.2); Total Protein 7.1 g/dL (6.6-8.7)
[2022-03-09 13:20] LABS: Troponin(5th) Baseline 19 ng/L (0-15)
[2022-03-09] MEDS: iodixanol 320 mg/mL 100mL Btl IV (14:11)
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
--- NOTE | 2022-03-09 14:41 | ECG_ITS ---
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 Measurements Intervals [place] Rate: 80 P: 36 UT: 219 QRS: 64 QRSD: 186 T: 254 QT: 467 QTc: 541 Interpretive Statements SINUS RHYTHM WITH FIRST DEGREE AV BLOCK LEFT BUNDLE BRANCH BLOCK [120+ ms QRS DURATION, 80+ ms Q/S IN V1/V2, 85+ ms R IN I/aVL/V5/V6] Compared to ECG 03/09/2022 12:59:33 No significant changes Electronically Signed On 03-09-2022 16:23:01 CDT by Praveena Reza M.D. [email or web address] hospitalUnut[facility] Electric[facility].[employer]/store/[id number]
[2022-03-09 14:55] LABS: Troponin 5 2HR 18.55 ng/L (0-15)
[2022-03-09 14:57] LABS: Troponin 5 2HR Delta -0.45 ABS# (0-10)
[2022-03-09 16:38] VITALS: BP 157/9; PULSE 80; RESP 15; O2SAT 96
== END 2022-03-09 16:39 | disposition home or self-care (01) ==
PROVIDERS: Emergency Provider Family Medicine; PCP Family Medicine
DX: Z04.1 Encounter for examination and observation following transport accident (principal); R07.9 Chest pain, unspecified; I25.110 Atherosclerotic heart disease of native coronary artery with unstable angina pectoris; I10 Essential (primary) hypertension; F17.210 Nicotine dependence, cigarettes, uncomplicated; Z95.1 Presence of aortocoronary bypass graft
CPT/HCPCS: 70450; 71260; 72125; 74177; 80053; 84484; 85025; 93005; 99284; Q9967

== ENCOUNTER 2022-03-18 08:20 | Emergency (ER) | payer SELFPAY ==
[2022-03-18 08:42] VITALS: BP 152/82; PULSE 98; RESP 16; TEMP 36.9; O2SAT 96; BMI 35.4
== END 2022-03-18 09:23 | disposition left against medical advice (07) ==
LOC: ER 08:59
PROVIDERS: Emergency Provider Family Medicine; PCP Family Medicine
DX: Z53.21 Procedure and treatment not carried out due to patient leaving prior to being seen by health care provider (principal); R53.1 Weakness

== ENCOUNTER 2022-03-27 22:36 | Emergency (ER) | payer OTHER, MEDICARE, SELFPAY ==
[2022-03-27 22:41] VITALS: BP 133/80; PULSE 88; RESP 18; TEMP 36.3; O2SAT 98; BMI 35.4
--- NOTE | 2022-03-27 22:48 | ECG_ITS ---
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 Measurements Intervals [place] Rate: 85 P: 28 DC: 212 QRS: 82 QRSD: 172 T: 263 QT: 458 QTc: 547 Interpretive Statements SINUS RHYTHM WITH FIRST DEGREE AV BLOCK LEFT BUNDLE BRANCH BLOCK [120+ ms QRS DURATION, 80+ ms Q/S IN V1/V2, 85+ ms R IN I/aVL/V5/V6] Compared to ECG 03/09/2022 14:33:26 No significant changes Electronically Signed On 03-28-2022 0:02:38 CDT by Gerald Rivers M.D. [email or web address].[email or web address]/store/[id number]
== END 2022-03-28 00:21 | disposition left against medical advice (07) ==
PROVIDERS: Emergency Provider Family Medicine; PCP Family Medicine
DX: Z53.21 Procedure and treatment not carried out due to patient leaving prior to being seen by health care provider (principal)
CPT/HCPCS: 93005

== ENCOUNTER 2022-03-28 10:21 | Emergency (ER) | payer MEDICARE, SELFPAY ==
[2022-03-28 11:23] VITALS: BP 110/47; PULSE 79; RESP 14; TEMP 36.7; O2SAT 97; BMI 34.4
--- NOTE | 2022-03-28 11:25 | XR_ITS ---
WS: [id number] Exam: XR chest 1V portable [id number] Date/Time of Exam: 03/28/2022 11:28 AM Reason For Exam: sob, cough Comparison 05/03/2021. The lungs are fully expanded. Chronic parenchymal scarring in the left lower lobe with the associated pleural thickening. Calcified pleural plaque formation along the left diaphragm. Normal heart size. Signs of previous median sternotomy. No pleural effusion seen. No pneumothorax. Bony structures are i ntact. XR/XR chest 1V portable [id number] IMPRESSION: 1. Chronic pulmonary and pleural changes in the left base. 2. No acute process identified.
--- NOTE | 2022-03-28 11:26 | ECG_ITS ---
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 Measurements Intervals [place] Rate: 79 P: 62 ID: 154 QRS: 67 QRSD: 182 T: 263 QT: 482 QTc: 553 Interpretive Statements SINUS RHYTHM POSSIBLE LEFT ATRIAL ENLARGEMENT [-0.1mV P-WAVE IN V1/V2] LEFT BUNDLE BRANCH BLOCK [120+ ms QRS DURATION, 80+ ms Q/S IN V1/V2, 85+ ms R IN I/aVL/V5/V6] Compared to ECG 03/27/2022 22:51:56 First degree AV block no longer present Electronically Signed On 03-28-2022 20:16:12 CDT by Mark Perez M.D. [email or web address] AfricaMascotaN[facility].[employer]/store/[id number]
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
[2022-03-28 15:13] LABS: Basophils % 0.4 %; Eosinophils # 0.3 10^3/uL (0.0-0.8); Eosinophils % 3.2 %; Hematocrit 46.1 % (42.0-52.0); Hemoglobin 15.2 g/dL (11.7-16.6); Lymphocytes # 2.8 10^3/uL (0.8-4.8); Lymphocytes % 30.8 %; Mean Corpuscular Hemoglobin 29.6 pg (28.0-34.0); Mean Corpuscular Volume 89.9 fl (80-94); Mean Platelet Volume 10.7 fL (7.4-10.4); Monocytes # 0.6 10^3/uL (0.2-0.9); Monocytes % 6.7 %; Neutrophils # 5.23 10^3/uL (1.8-7.7); Neutrophils % 58.6 %; Nucleated Red Blood Cells % 0 %; Platelet Count 218 10^3/cmm (130-400); Red Blood Count 5.13 10^6/uL (4.1-5.3); Red Cell Distribution Width 12.8 % (12.1-15.1)
[2022-03-28 15:34] LABS: Troponin(5th) Baseline 28 ng/L (0-15)
[2022-03-28 16:05] VITALS: BP 110/47; PULSE 79; RESP 14; O2SAT 97
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
[2022-03-28 16:29] LABS: Alanine Aminotransferase 20 U/L (0-41); Alkaline Phosphatase 73 IU/L (40-130); Blood Urea Nitrogen 11 mg/dL (6-20); Calcium 9.4 mg/dL (8.5-10.5); Carbon Dioxide 16 mmol/L (22-29); Chloride 104 mmol/L (98-107); Globulin 3.3 g/dL (1.3-4.6); Glomerular Filtration Rate 100.4 mL/min (90-130); Glucose 76 mg/dL (65-115); Osmolality Calculated 282 mOsm/kg (285-295); Sodium 137 mmol/L (136-145); Total Bilirubin 0.4 mg/dL (0.15-1.2); Total Protein 7.3 g/dL (6.6-8.7)
[2022-03-28 16:30] LABS: Anion Gap 21.1 (5-19); Aspartate Amino Transferase 23 U/L (0-40); Potassium 4.1 mmol/L (3.5-5.1)
--- NOTE | 2022-03-28 17:26 | ECG_ITS ---
[facility] Test Date: 2022-03-28 Pat Name: John Solitario Department: Room: Gender: Male Unit Secy: : 1965 Requested By: Liana Gutierrez Order Number: [id number] Jarred MD: Mark Perez M.D. Measurements Intervals [place] Rate: 79 P: 12 [place]: 221 QRS: 60 QRSD: 186 T: 230 QT: 476 QTc: 547 Interpretive Statements SINUS RHYTHM WITH FIRST DEGREE AV BLOCK LEFT BUNDLE BRANCH BLOCK [120+ ms QRS DURATION, 80+ ms Q/S IN V1/V2, 85+ ms R IN I/aVL/V5/V6] Compared to ECG 03/28/2022 14:34:41 First degree AV block now present Electronically Signed On 03-28-2022 20:20:46 CDT by Mark Perez M.D. [id number]
[2022-03-28] MEDS: LORazepam 1 mg Tablet PO (17:37)
[2022-03-28 18:35] LABS: Troponin 5 2HR 29.08 ng/L (0-15)
[2022-03-28 18:41] LABS: Troponin 5 2HR Delta 1.08 ABS# (0-10)
[2022-03-28 19:01] VITALS: BP 128/79; PULSE 65; RESP 16; O2SAT 96
== END 2022-03-28 19:08 | disposition left against medical advice (07) ==
PROVIDERS: Physician Assistant; Emergency Provider Emergency Medicine; PCP Family Medicine
DX: S06.0X9A Concussion with loss of consciousness of unspecified duration, initial encounter (principal); V89.2XXA Person injured in unspecified motor-vehicle accident, traffic, initial encounter; R51.9 Headache, unspecified; R42 Dizziness and giddiness; R29.6 Repeated falls; M54.2 Cervicalgia; M54.9 Dorsalgia, unspecified; Z53.29 Procedure and treatment not carried out because of patient's decision for other reasons; Z91.81 History of falling
CPT/HCPCS: 70450; 71045; 80053; 84484; 85025; 93005; 99285

== ENCOUNTER 2022-05-10 12:38 | Outpatient (RCR) | payer OTHER, MEDICARE, SELFPAY | END 2022-05-20 23:59 | disposition home or self-care (01) | LOC: SPT 12:38 | PROVIDERS: PCP Family Medicine; Referring Provider Family Medicine; Visit Provider Family Medicine | DX: H81.10 Benign paroxysmal vertigo, unspecified ear (principal) | CPT/HCPCS: 97161 ==

== ENCOUNTER → 2022-05-23 11:43 | Outpatient (BNVA) | payer MEDICARE, SELFPAY | PROVIDERS: PCP Family Medicine; Visit Provider Internal Medicine Cardiovascular Disease | DX: I25.5 Ischemic cardiomyopathy (principal); I48.20 Chronic atrial fibrillation, unspecified; I10 Essential (primary) hypertension; I73.9 Peripheral vascular disease, unspecified; I25.119 Atherosclerotic heart disease of native coronary artery with unspecified angina pectoris; Z79.899 Other long term (current) drug therapy; F17.210 Nicotine dependence, cigarettes, uncomplicated; I44.0 Atrioventricular block, first degree; I44.7 Left bundle-branch block, unspecified; R94.31 Abnormal electrocardiogram [ECG] [EKG] | CPT/HCPCS: 93005; 99214 ==

== ENCOUNTER 2022-05-25 08:21 | Outpatient (CLI) | payer MEDICARE, SELFPAY ==
[2022-05-25 09:41] LABS: Alanine Aminotransferase 22 U/L (0-41); Albumin Level 4.7 g/dL (3.5-5.2); Alkaline Phosphatase 65 IU/L (40-130); Aspartate Amino Transferase 18 U/L (0-40); Chol HDL Ratio 5.41 mg/dL (1.0-5.00); Cholesterol 184 mg/dL (0-200); Globulin 2.5 g/dL (1.3-4.6); HDL Cholesterol 34 mg/dL (60-100); LDL Cholesterol Calculated 110 mg/dL (50-129); LDL HDL Ratio 3.24 RATIO (0.00-3.22); Total Bilirubin 0.3 mg/dL (0.15-1.2); Total Protein 7.2 g/dL (6.6-8.7); Triglycerides 198 mg/dL (0-150)
== END 2022-05-25 08:22 | disposition home or self-care (01) ==
LOC: LAB 08:24
PROVIDERS: PCP Family Medicine; Visit Provider Internal Medicine Cardiovascular Disease
DX: E78.5 Hyperlipidemia, unspecified (principal)
CPT/HCPCS: 36415; 80061; 80076

== ENCOUNTER → 2022-08-29 09:54 | Outpatient (BNVA) | payer MEDICARE, SELFPAY | PROVIDERS: PCP Family Medicine Adult Medicine; Visit Provider Internal Medicine Cardiovascular Disease | DX: I48.20 Chronic atrial fibrillation, unspecified (principal); I25.110 Atherosclerotic heart disease of native coronary artery with unstable angina pectoris; I25.5 Ischemic cardiomyopathy; G47.33 Obstructive sleep apnea (adult) (pediatric); I10 Essential (primary) hypertension; I73.9 Peripheral vascular disease, unspecified; E11.9 Type 2 diabetes mellitus without complications; Z79.84 Long term (current) use of oral hypoglycemic drugs; E78.5 Hyperlipidemia, unspecified; F17.210 Nicotine dependence, cigarettes, uncomplicated; Z79.01 Long term (current) use of anticoagulants | CPT/HCPCS: 99214 ==

== ENCOUNTER → 2022-09-21 11:37 | Outpatient (BNVA) | payer MEDICARE, SELFPAY | PROVIDERS: PCP Family Medicine Adult Medicine; Visit Provider Family Medicine Adult Medicine | DX: Z79.899 Other long term (current) drug therapy (principal); I10 Essential (primary) hypertension; E11.9 Type 2 diabetes mellitus without complications | CPT/HCPCS: 80053; 83036 ==